=== PATIENT | female | born 1975 | race Caucasian/White ===

== ENCOUNTER 2023-09-08 12:00 | Emergency (ER) | payer SELFPAY ==
[~2023-09-08] VITALS: Ht 165.1 cm; Wt 100.0 kg
[2023-09-08 12:05] VITALS: O2SAT 97
[2023-09-08 12:56] LABS: CHLORIDE 108 mEq/L (98-107); SODIUM 138 mEq/L (136-145)
[2023-09-08 12:57] LABS: CARBON DIOXIDE 23 mEq/L (21-32)
[2023-09-08 12:58] LABS: CALCIUM 9.7 mg/dL (8.7-10.4)
[2023-09-08 13:01] LABS: HEMATOCRIT. 39.7 % (36.0-48.0); MEAN CORPUSCULAR HEMOGLOBIN 27.5 pg (28.0-32.0); MEAN CORPUSCULAR HGB CONC 32.8 g/dL (31.0-37.0); MEAN CORPUSCULAR VOLUME 83.9 fL (81.0-99.0); RED BLOOD CELL COUNT 4.73 mill/uL (4.2-5.4); RED CELL DISTRIBUTION WIDTH 16.7 % (11.6-14.6)
[2023-09-08 13:02] LABS: CREATININE 0.5 mg/dL (0.6-1.0); GLUCOSE 99 mg/dL (70-105); UREA NITROGEN BLOOD 10 mg/dL (9-23)
[2023-09-08 13:04] LABS: ALANINE AMINOTRANSFERASE 22 IU/L (10-49); ALBUMIN 4.2 g/dL (3.2-4.8); ASPARTATE AMINOTRANSFERASE 27 IU/L (<34)
[2023-09-08 13:05] LABS: BILIRUBIN TOTAL 0.7 mg/dL (0.1-1.0); PROTEIN TOTAL 7.5 g/dL (6.0-8.3)
[2023-09-08 13:06] LABS: DIFFERENTIAL COMMENT 1
[2023-09-08 13:12] LABS: TROPONIN I HIGH SENSITIVITY < 4 ng/L (3.0-34)
[2023-09-08] MEDS: ONDANSETRON 4MG ODT PO STA (13:18)
[2023-09-08] MEDS: ACETAMINOPHEN 325MG TABLET PO STA (13:18)
[2023-09-08] MEDS: MECLIZINE 25MG TABLET PO ONE (13:18)
[2023-09-08 13:38] LABS: ANISOCYTOSIS 1+; MEAN PLATELET VOLUME 7.6 fl (7.4-10.4); PLATELET 176 x1000/uL (130-400); PLATELET ESTIMATE NORMAL
[2023-09-08] MEDS ORDERED: HYDR25TA MT (13:39)
[2023-09-08 13:56] VITALS: BP 157/81; PULSE 58; RESP 21; TEMP 97.7
== END 2023-09-08 14:06 | disposition home or self-care (01) ==
LOC: ER 13:12
DX: R42 Dizziness and giddiness (principal); I10 Essential (primary) hypertension
CPT/HCPCS: 99285; 71045; 80053; 83880; 85025; 84484; 36415; 93005; J8597; Q0162